=== PATIENT | male | born 1950 | race African-American/Black ===

== ENCOUNTER 2021-04-07 15:50 | Inpatient (IN) | payer OTHER, MEDICAID ==
[~2021-04-07] VITALS: Ht 172.7 cm; Wt 72.1 kg
[2021-04-07 16:46] LABS: EOSINOPHILS % 3.4 % (0.0-5.0); HEMATOCRIT. 35.1 % (42.0-52.0); HEMOGLOBIN. 11.5 g/dL (14.0-18.0); MEAN CORPUSCULAR HEMOGLOBIN 26.9 pg (28.0-32.0); MEAN CORPUSCULAR VOLUME 81.9 fL (80.0-94.0); MEAN PLATELET VOLUME 8.8 fl (7.4-10.4); MONOCYTES % 11.4 % (2.0-8.0); NEUTROPHILS % 51.2 % (40.0-76.0); PLATELET 168 x1000/uL (130-400); RED BLOOD CELL COUNT 4.28 mill/uL (4.7-6.1)
[2021-04-07 16:52] LABS: CHLORIDE 113 mEq/L (98-107)
[2021-04-07] MEDS ORDERED: SODIUM CHLORIDE 0.9% 1,000 ML IV ONE (17:45)
[2021-04-07 17:57] LABS: CLARITY URINE CLEAR (CLEAR); COLOR URINE YELLOW (YELLOW); KETONES URINE NEGATIVE (NEGATIVE); LEUKOCYTE ESTERASE URINE NEGATIVE (NEGATIVE); NITRITE URINE NEGATIVE (NEGATIVE); OCCULT BLOOD URINE NEGATIVE (NEGATIVE); PH URINE 5.5 (4.5-8.0); PROTEIN URINE TRACE (NEGATIVE); SPECIFIC GRAVITY URINE 1.014 (1.005-1.030); UROBILINOGEN URINE 0.2 E.U./dL (0.2-1.0)
[2021-04-07] MEDS ORDERED: AMLODIPINE 5MG TABLET PO ONE (22:00)
[2021-04-08] MEDS ORDERED: ONDANSETRON HCL 4MG/2ML INJ IV PRN (08:30)
[2021-04-08] MEDS ORDERED: HYDROCODONE/ACETAMINOPHEN 5/325MG TABLET PO PRN (08:30)
[2021-04-08] MEDS ORDERED: ACETAMINOPHEN 325MG TABLET PO PRN (08:30)
[2021-04-08] MEDS ORDERED: NALOXONE HCL 0.4MG/ML VIAL IV PRN (08:30)
[2021-04-08] MEDS: AMLODIPINE 10MG TABLET PO SCH (09:34)
[2021-04-08 11:30] VITALS: BP 167/59
[2021-04-08 12:00] VITALS: BP 167/59
[2021-04-08 16:00] VITALS: BP 169/77
[2021-04-08 16:25] VITALS: BP 141/50
[2021-04-08 20:00] VITALS: BP 186/80
[2021-04-09] VITALS (7 sets, daily range): BP systolic 105–179; BP diastolic 53–75
[2021-04-09] MEDS: CLONIDINE 0.1MG TABLET PO PRN ×2 (05:40→12:24)
[2021-04-09] MEDS: AMLODIPINE 10MG TABLET PO SCH (09:01)
[2021-04-09] MEDS ORDERED: FAMO20TA8 MT (12:08)
[2021-04-09] MEDS ORDERED: PRAV40TA58 PO (12:08)
[2021-04-09] MEDS ORDERED: CALC0.253 PO (12:08)
[2021-04-09] MEDS ORDERED: OLME40TA18 MT (12:08)
[2021-04-09] MEDS ORDERED: AMLO10TA80 MT (12:08)
[2021-04-09] MEDS ORDERED: LEVO50TA8 MT (12:08)
[2021-04-09] MEDS ORDERED: LATA2.5D14 OP (12:08)
[2021-04-09] MEDS ORDERED: HYDRALAZINE HCL 100MG TABLET PO SCH (13:00)
[2021-04-09] MEDS: HYDRALAZINE HCL 100MG TABLET PO SCH (23:40)
[2021-04-10] VITALS (8 sets, daily range): BP systolic 130–150; BP diastolic 59–67
[2021-04-10 07:17] LABS: BASOPHILS % 0.4 % (0.0-2.0); EOSINOPHILS % 1.1 % (0.0-5.0); HEMATOCRIT. 39.3 % (42.0-52.0); HEMOGLOBIN. 12.2 g/dL (14.0-18.0); LYMPHOCYTES % 16.2 % (20.0-50.0); MEAN CORPUSCULAR HEMOGLOBIN 26.4 pg (28.0-32.0); MEAN CORPUSCULAR VOLUME 84.6 fL (80.0-94.0); MEAN PLATELET VOLUME 8.8 fl (7.4-10.4); MONOCYTES % 9.2 % (2.0-8.0); NEUTROPHILS % 73.1 % (40.0-76.0); PLATELET 166 x1000/uL (130-400); RED BLOOD CELL COUNT 4.65 mill/uL (4.7-6.1); RED CELL DISTRIBUTION WIDTH 15.7 % (11.6-14.6)
[2021-04-10] MEDS: AMLODIPINE 10MG TABLET PO SCH (08:47)
[2021-04-10] MEDS: HYDRALAZINE HCL 100MG TABLET PO SCH (08:47)
[2021-04-10 10:06] LABS: INR 1.1; PROTHROMBIN TIME 11.3 sec (9.6-11.0)
[2021-04-10] MEDS ORDERED: FENTANYL CITRATE/PF 50MCG/ML 2ML VIAL ONE (12:13)
[2021-04-10] MEDS ORDERED: LIDOCAINE HCL 1% 20ML VIAL (Pyxis) INJ ONE (12:14)
[2021-04-10] MEDS ORDERED: SODIUM BICARBONATE 4% (2.4MEQ) 5ML VIAL IV ONE (13:05)
[2021-04-10] MEDS ORDERED: HYDR-4001 MT (13:14)
[2021-04-10] MEDS: CLONIDINE 0.1MG TABLET PO PRN (15:03)
[2021-04-10] MEDS ORDERED: LOSA50TA3 MT (15:53)
[2021-04-10] MEDS ORDERED: LEVO50TA MT (15:53)
[2021-04-10] MEDS ORDERED: PRAV40TA58 MT (15:53)
[2021-04-10] MEDS ORDERED: AMLO10TA4 MT (15:53)
[2021-04-11 08:14] VITALS: BP 144/61
== END 2021-04-10 17:30 | disposition home or self-care (01) | DRG 940 ==
LOC: ER 15:50 → ENRESERV 04-08 07:30 → EDBEDREQSVC 04-08 08:25 → ENRESERV 04-08 09:29 → 6EST 04-08 11:38 → 7EST 04-09 10:15
PROVIDERS: ADMIT Internal Medicine; ATTEND Internal Medicine
PROC: 07B63ZX Excision of Left Axillary Lymphatic, Percutaneous Approach, Diagnostic (ICD-10-PCS; principal; 2021-04-10)
DX: G89.3 Neoplasm related pain (acute) (chronic) (principal); C79.51 Secondary malignant neoplasm of bone; N17.9 Acute kidney failure, unspecified; C78.02 Secondary malignant neoplasm of left lung; D64.9 Anemia, unspecified; K21.9 Gastro-esophageal reflux disease without esophagitis; N18.9 Chronic kidney disease, unspecified; Z20.822 Contact with and (suspected) exposure to COVID-19; M10.9 Gout, unspecified; I12.9 Hypertensive chronic kidney disease with stage 1 through stage 4 chronic kidney disease, or unspecified chronic kidney disease; E03.9 Hypothyroidism, unspecified; E87.8 Other disorders of electrolyte and fluid balance, not elsewhere classified; E78.00 Pure hypercholesterolemia, unspecified; E78.5 Hyperlipidemia, unspecified; Z85.46 Personal history of malignant neoplasm of prostate; Z85.038 Personal history of other malignant neoplasm of large intestine; Z90.79 Acquired absence of other genital organ(s)
CPT/HCPCS: 36415; 38505; 71045; 71250; 72148; 74176; 76942; 80048; 80053; 81003; 84153; 85025; 87426; 88305; 93005; 97161; 99285; J3010; J3490; J7030; G0103

== ENCOUNTER 2021-05-26 11:01 | Inpatient (IN) | payer BC, MEDICAID ==
[~2021-05-26] VITALS: Ht 172.7 cm; Wt 76.2 kg
[~2021-05-26 11:01] MED LIST: AMLO10TA4 MT; AMLO10TA80 MT; CALC0.253 PO; FAMO20TA8 MT; HYDR-4001 MT; LATA2.5D14 OP; LEVO50TA MT; LEVO50TA8 MT; LOSA50TA3 MT; OLME40TA18 MT; PRAV40TA58 MT; PRAV40TA58 PO
[2021-05-26] MEDS ORDERED: HYDROCODONE/ACETAMINOPHEN 5/325MG TABLET PO STA (11:30)
[2021-05-26] MEDS ORDERED: SODIUM CHLORIDE 0.9% 1,000 ML IV ONE (11:30)
[2021-05-26 12:13] LABS: CHLORIDE 104 mEq/L (98-107)
[2021-05-26 12:15] LABS: BASOPHILS % 0.9 % (0.0-2.0); EOSINOPHILS % 2.1 % (0.0-5.0); HEMATOCRIT. 42.8 % (42.0-52.0); HEMOGLOBIN. 13.8 g/dL (14.0-18.0); LYMPHOCYTES % 16.3 % (20.0-50.0); MEAN CORPUSCULAR HEMOGLOBIN 25.9 pg (28.0-32.0); MEAN CORPUSCULAR VOLUME 80.3 fL (80.0-94.0); MEAN PLATELET VOLUME 9.5 fl (7.4-10.4); NEUTROPHILS % 70.7 % (40.0-76.0); PLATELET 242 x1000/uL (130-400); RED BLOOD CELL COUNT 5.33 mill/uL (4.7-6.1); RED CELL DISTRIBUTION WIDTH 14.7 % (11.6-14.6)
[2021-05-26 12:22] LABS: CLARITY URINE CLEAR (CLEAR); COLOR URINE YELLOW (YELLOW); KETONES URINE NEGATIVE (NEGATIVE); LEUKOCYTE ESTERASE URINE 2+ (NEGATIVE); NITRITE URINE POSITIVE (NEGATIVE); OCCULT BLOOD URINE NEGATIVE (NEGATIVE); PROTEIN URINE 1+ (NEGATIVE); SPECIFIC GRAVITY URINE 1.018 (1.005-1.030); UROBILINOGEN URINE 0.2 E.U./dL (0.2-1.0)
[2021-05-26 12:27] LABS: PROTHROMBIN TIME 11.1 sec (9.6-11.0)
[2021-05-26] MEDS ORDERED: VANCOMYCIN 1G PREMIX 200 ML IV SCH (12:30)
[2021-05-26] MEDS ORDERED: SODIUM CHLORIDE 0.9% 1000ML BAG (SEPSIS BOLUS) IV SCH (12:30)
[2021-05-26] MEDS ORDERED: CEFTRIAXONE 1 G PREMIX 50 ML IV SCH (12:30)
[2021-05-26] MEDS ORDERED: DIPHENHYDRAMINE 50MG/ML VIAL IV PRN (15:30)
[2021-05-26] MEDS ORDERED: ACETAMINOPHEN 325MG TABLET PO PRN (15:30)
[2021-05-26] MEDS ORDERED: LORAZEPAM 0.5MG TABLET PO PRN (15:30)
[2021-05-26] MEDS: DEXT 5%/0.9% NACL 1,000 ML IV SCH (15:30)
[2021-05-26] MEDS ORDERED: MAGNESIUM/ALUMINUM HYDROXIDE/SIMETHICONE 30ML UDC PO PRN (15:30)
[2021-05-26] MEDS ORDERED: CLONIDINE 0.1MG TABLET PO PRN (15:30)
[2021-05-26] MEDS ORDERED: ONDANSETRON HCL 4MG/2ML INJ IV PRN (15:30)
[2021-05-26] MEDS ORDERED: DOCUSATE SODIUM 100MG CAPSULE PO PRN (15:30)
[2021-05-26] MEDS ORDERED: HYDROCODONE/ACETAMINOPHEN 5/325MG TABLET PO PRN (15:30)
[2021-05-26] MEDS ORDERED: IPRATROPIUM/ALBUTEROL 0.5-3(2.5)MG/3ML NEB NEB PRN (15:30)
[2021-05-26] MEDS ORDERED: NA PHOS,M-B/NA PHOS,DI-BA ENEMA 118ML PR PRN (15:30)
[2021-05-26] MEDS ORDERED: ACETAMINOPHEN 650MG SUPP PR PRN (15:30)
[2021-05-26] MEDS ORDERED: GUAIFENESIN 200MG/10ML SUGAR FREE UDC PO PRN (15:30)
[2021-05-26] MEDS ORDERED: NALOXONE HCL 0.4MG/ML VIAL IV PRN (16:15)
[2021-05-26] MEDS ORDERED: PAMIDRONATE DISODIUM 60 MG in SODIUM CHLORIDE 0.9% 500 ML IV NR (16:30)
[2021-05-26] MEDS: PANTOPRAZOLE SODIUM 40 MG/VIAL IV SCH (16:51)
[2021-05-26] MEDS: MORPHINE SULFATE 2 MG/ML CPJ (NOT FOR IM USE) IV PRN (20:05)
[2021-05-26] MEDS: HEPARIN 5000 UNITS/ML VIAL SUBCUT SCH (22:28)
[2021-05-26 23:00] VITALS: BP 155/60
[2021-05-27] VITALS: BP 157/69
[2021-05-27 00:28] LABS: CREATINE KINASE MB FRACTION 3.5 ng/mL (0.5-3.6)
[2021-05-27 04:00] VITALS: BP 142/57
[2021-05-27] MEDS: HEPARIN 5000 UNITS/ML VIAL SUBCUT SCH ×3 (05:13→21:48)
[2021-05-27] MEDS: DEXT 5%/0.9% NACL 1,000 ML IV SCH ×3 (05:14→23:16)
[2021-05-27 07:54] VITALS: BP 182/51
[2021-05-27 08:38] LABS: BASOPHILS % 0.5 % (0.0-2.0); EOSINOPHILS % 2.4 % (0.0-5.0); HEMATOCRIT. 35.1 % (42.0-52.0); HEMOGLOBIN. 11.5 g/dL (14.0-18.0); LYMPHOCYTES % 12.2 % (20.0-50.0); MEAN CORPUSCULAR HEMOGLOBIN 26.6 pg (28.0-32.0); MEAN PLATELET VOLUME 9.7 fl (7.4-10.4); MONOCYTES % 8.3 % (2.0-8.0); NEUTROPHILS % 76.6 % (40.0-76.0); PLATELET 187 x1000/uL (130-400); RED BLOOD CELL COUNT 4.33 mill/uL (4.7-6.1); RED CELL DISTRIBUTION WIDTH 14.5 % (11.6-14.6)
[2021-05-27] MEDS: HYDRALAZINE 20MG/ML VIAL IV PRN ×2 (08:38→16:34)
[2021-05-27] MEDS: PANTOPRAZOLE SODIUM 40 MG/VIAL IV SCH (08:38)
[2021-05-27 08:52] LABS: CHLORIDE 111 mEq/L (98-107)
[2021-05-27 08:59] LABS: PHOSPHORUS 3.5 mg/dL (2.5-4.9)
[2021-05-27 09:02] LABS: CREATINE KINASE 123 IU/L (39-308)
[2021-05-27] MEDS ORDERED: SODIUM POLYSTYRENE SULFONATE 15 G/60 ML BOT PO NR (10:46)
[2021-05-27 12:00] VITALS: BP 150/62
[2021-05-27] MEDS ORDERED: CEFTRIAXONE 1 G PREMIX 50 ML IV SCH (13:00)
[2021-05-27] MEDS: CEFTRIAXONE 1,000 MG in DEXTROSE 5% WATER 50 ML IV SCH (14:58)
[2021-05-27 16:00] VITALS: BP 168/77
[2021-05-27] MEDS: MORPHINE SULFATE 2 MG/ML CPJ (NOT FOR IM USE) IV PRN (16:38)
[2021-05-27 20:00] VITALS: BP 150/55
[2021-05-28] VITALS: BP 154/73
[2021-05-28 04:00] VITALS: BP 150/60
[2021-05-28] MEDS: HEPARIN 5000 UNITS/ML VIAL SUBCUT SCH ×3 (05:31→21:19)
[2021-05-28] MEDS: MORPHINE SULFATE 2 MG/ML CPJ (NOT FOR IM USE) IV PRN ×3 (05:55→20:46)
[2021-05-28] MEDS: DEXT 5%/0.9% NACL 1,000 ML IV SCH (06:08)
[2021-05-28 08:00] VITALS: BP 154/62
[2021-05-28] MEDS: PANTOPRAZOLE SODIUM 40 MG/VIAL IV SCH (08:36)
[2021-05-28] MEDS: DEXT 5%/0.45% NACL 1000ML 1,000 ML IV SCH ×2 (09:53→16:49)
[2021-05-28 12:00] VITALS: BP 157/71
[2021-05-28] MEDS: CEFTRIAXONE 1,000 MG in DEXTROSE 5% WATER 50 ML IV SCH (15:10)
[2021-05-28 16:00] VITALS: BP 144/65
[2021-05-28 20:00] VITALS: BP 138/78
[2021-05-29] VITALS: BP 125/78
[2021-05-29 04:00] VITALS: BP 187/68
[2021-05-29] MEDS: HYDRALAZINE 20MG/ML VIAL IV PRN (04:46)
[2021-05-29] MEDS: HEPARIN 5000 UNITS/ML VIAL SUBCUT SCH ×3 (05:34→21:31)
[2021-05-29] MEDS: DEXT 5%/0.45% NACL 1000ML 1,000 ML IV SCH ×3 (05:36→17:53)
[2021-05-29 07:33] LABS: BASOPHILS % 0.6 % (0.0-2.0); EOSINOPHILS % 2.2 % (0.0-5.0); HEMATOCRIT. 34.2 % (42.0-52.0); LYMPHOCYTES % 12.4 % (20.0-50.0); MEAN CORPUSCULAR HEMOGLOBIN 26.2 pg (28.0-32.0); MEAN CORPUSCULAR VOLUME 81.5 fL (80.0-94.0); MEAN PLATELET VOLUME 9.2 fl (7.4-10.4); MONOCYTES % 12.7 % (2.0-8.0); NEUTROPHILS % 72.1 % (40.0-76.0); PLATELET 167 x1000/uL (130-400); RED BLOOD CELL COUNT 4.19 mill/uL (4.7-6.1); RED CELL DISTRIBUTION WIDTH 15.2 % (11.6-14.6)
[2021-05-29 08:00] VITALS: BP 155/54
[2021-05-29] MEDS: PANTOPRAZOLE SODIUM 40 MG/VIAL IV SCH (08:51)
[2021-05-29 12:00] VITALS: BP 121/62
[2021-05-29] MEDS: MORPHINE SULFATE 2 MG/ML CPJ (NOT FOR IM USE) IV PRN ×2 (12:24→20:26)
[2021-05-29] MEDS: HYDRALAZINE HCL 25MG TABLET PO SCH ×2 (13:55→21:31)
[2021-05-29] MEDS ORDERED: PAMIDRONATE DISODIUM 30 MG in SODIUM CHLORIDE 0.9% 500 ML IV SCH (14:00)
[2021-05-29 16:00] VITALS: BP 132/58
[2021-05-29] MEDS: CEFTRIAXONE 1,000 MG in DEXTROSE 5% WATER 50 ML IV SCH (17:53)
[2021-05-29 20:00] VITALS: BP 146/60
[2021-05-30] VITALS (8 sets, daily range): BP systolic 96–156; BP diastolic 57–68
[2021-05-30] MEDS: DEXT 5%/0.45% NACL 1000ML 1,000 ML IV SCH ×2 (01:45→09:20)
[2021-05-30] MEDS: HYDRALAZINE HCL 25MG TABLET PO SCH ×2 (06:21→14:17)
[2021-05-30] MEDS: HEPARIN 5000 UNITS/ML VIAL SUBCUT SCH ×2 (06:21→14:18)
[2021-05-30 06:47] LABS: BASOPHILS % 0.5 % (0.0-2.0); EOSINOPHILS % 3.2 % (0.0-5.0); HEMATOCRIT. 33.1 % (42.0-52.0); HEMOGLOBIN. 10.8 g/dL (14.0-18.0); LYMPHOCYTES % 13.6 % (20.0-50.0); MEAN CORPUSCULAR HEMOGLOBIN 26.4 pg (28.0-32.0); MEAN CORPUSCULAR VOLUME 81.2 fL (80.0-94.0); MEAN PLATELET VOLUME 10.1 fl (7.4-10.4); MONOCYTES % 11.1 % (2.0-8.0); NEUTROPHILS % 71.6 % (40.0-76.0); PLATELET 146 x1000/uL (130-400); RED BLOOD CELL COUNT 4.08 mill/uL (4.7-6.1); RED CELL DISTRIBUTION WIDTH 14.9 % (11.6-14.6)
[2021-05-30 07:17] LABS: PHOSPHORUS 1.6 mg/dL (2.5-4.9)
[2021-05-30] MEDS: PANTOPRAZOLE SODIUM 40 MG/VIAL IV SCH (09:11)
[2021-05-30] MEDS ORDERED: SODIUM PHOS,M-BASIC-D-BASIC 15 MM in DEXT 5% WATER 245 ML IV NR (13:00)
[2021-05-30] MEDS ORDERED: MAGNESIUM 1 G PREMIX 100 ML IV NR ×2 (13:00)
[2021-05-30] MEDS ORDERED: SODIUM PHOS,M-BASIC-D-BASIC 10 MM in DEXT 5% WATER 246.6667 ML IV NR (13:00)
[2021-05-30] MEDS ORDERED: LEVO250T58 MT (15:19)
[2021-05-30] MEDS ORDERED: LEVOFLOXACIN 500MG PREMIX 100 ML IV SCH (16:00)
[2021-05-30] MEDS: MORPHINE SULFATE 2 MG/ML CPJ (NOT FOR IM USE) IV PRN (20:32)
[2021-05-31] MEDS ORDERED: LEVOFLOXACIN 250MG PREMIX 50 ML IV SCH (16:00)
== END 2021-05-30 20:40 | disposition home or self-care (01) | DRG 947 ==
LOC: ER 12:47 → 5WST 14:01 → EDBEDREQ 14:05 → SUPCPDRO 14:58 → ENRESERV 19:32
PROVIDERS: ADMIT Internal Medicine; ATTEND Internal Medicine
DX: G89.3 Neoplasm related pain (acute) (chronic) (principal); N17.0 Acute kidney failure with tubular necrosis; C79.51 Secondary malignant neoplasm of bone; E87.2 Acidosis; N18.4 Chronic kidney disease, stage 4 (severe); N25.81 Secondary hyperparathyroidism of renal origin; N39.0 Urinary tract infection, site not specified; C34.90 Malignant neoplasm of unspecified part of unspecified bronchus or lung; C7A.1 Malignant poorly differentiated neuroendocrine tumors; E03.9 Hypothyroidism, unspecified; E78.5 Hyperlipidemia, unspecified; I12.9 Hypertensive chronic kidney disease with stage 1 through stage 4 chronic kidney disease, or unspecified chronic kidney disease; E83.52 Hypercalcemia; E87.5 Hyperkalemia; H54.7 Unspecified visual loss; Z20.822 Contact with and (suspected) exposure to COVID-19; B96.20 Unspecified Escherichia coli [E. coli] as the cause of diseases classified elsewhere; K21.9 Gastro-esophageal reflux disease without esophagitis; R53.81 Other malaise; K59.00 Constipation, unspecified; E86.0 Dehydration; Z90.79 Acquired absence of other genital organ(s); Z85.038 Personal history of other malignant neoplasm of large intestine; Z90.49 Acquired absence of other specified parts of digestive tract; Z85.46 Personal history of malignant neoplasm of prostate; Z79.899 Other long term (current) drug therapy
CPT/HCPCS: 36415; 71045; 74176; 76770; 80048; 80053; 81003; 82310; 82550; 82553; 83605; 83735; 83880; 83970; 84100; 84145; 84443; 84484; 85025; 87077; 87186; 87426; 93005; 93970; 97162; 99291; C1893; C9113; J0360; J0696; J1644; J1956; J2270; J2430; J3370; J3475; J3490; J7030; J7040; J7042; J7060; A4315